=== PATIENT | female | born 1955 | race Caucasian/White ===

== ENCOUNTER 2016-07-28 03:23 | Inpatient (IN) | payer BC, MEDICARE, OTHER ==
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
--- NOTE | ~2016-07-28 | OP ---
Record Of Operation [facility] [address] [place]. [address] NAME: YUAN LOJA : 57 STATUS : ADM IN PAT#: [id number] AGE: 60 ADM/REG DATE : 07/28/16 MR#: [id number] REPORT SERV DATE: 08/08/16 DICTATED BY: SHREE BRAVO II DATE: 08/08/16 REPORT STATUS : Draft TRANSCRIBED BY: MODIqra DATE: 08/08/16 DATE OF PROCEDURE: 08/05/2016 SERVICE DESK TEAM LEAD: Dr. Wall. PREOPERATIVE DIAGNOSIS: Critical ischemia right leg with chronic ulceration. POSTOPERATIVE DIAGNOSIS: Critical ischemia right leg with chronic ulceration. PROCEDURE: 1. Abdominal aortogram from a left femoral approach. 2. Right leg angiogram. 3. Percutaneous angioplasty of right superficial femoral artery occlusion. 4. Percutaneous angioplasty of right popliteal artery. 5. Percutaneous angioplasty of right tibioperoneal trunk. 6. Percutaneous primary stent placement of right external iliac artery. ANESTHESIA: Local with MAC. IV FLUIDS: 400 mL. ESTIMATED BLOOD LOSS: 20. CONTRAST: 67. BRIEF HISTORY: Ms. Loja is a 60-year-old female, who has had a long-standing PVD as well as deformity of both legs. She has developed a decubitus ulcer on the right leg. She has been evaluated for possible [id number]. She has no femoral pulse. She was recommended to undergo angiogram for possible limb salvage and for possible healing with [id number]-[id number] amputation if this is ultimately required. DETAILS: She was taken to the operating room and placed supine on table. Both groins were prepped and draped. I used ultrasound to identify the left common femoral artery. I performed a puncture, placed a 5-Vietnamese sheath. Aortic catheter was placed. Aortogram demonstrates a patent abdominal aorta. The renal vessels were patent. There was no aneurysm or dissection. Both common iliac arteries were widely patent. On the left side, a mild disease is noted with no focal stenosis. There was a severe stenosis over a long segment within the external iliac artery on the right side. Stenosis is more than 80%. There was a stent present in the very distal external iliac artery that was patent. The stents have no evidence of stenosis. We then passed a catheter over the bifurcation. We heparinized the patient. We performed a right leg angiogram, it demonstrates the common femoral and profunda to be patent. These are primarily fed through the internal iliac. The SFA is patent. It occludes just beyond its origin. There was reconstitution of the popliteal artery. All 3 tibial vessels were patent but there was a stenosis within the tibioperoneal trunk. We then passed a 6-Vietnamese sheath over the bifurcation. We were able to pass a wire through the SFA occlusion through the popliteal and through the tibioperoneal Record Of Operation [place] [id number] [facility] [place]. [address] NAME: YUAN LOJA : 57 STATUS : ADM IN PAT#: [id number] AGE: 60 ADM/REG DATE : 07/28/16 MR#: [id number] REPORT SERV DATE: 08/08/16 DICTATED BY: SHREE BRAVO II DATE: 08/08/16 REPORT STATUS : Draft TRANSCRIBED BY: KRISHNA DATE: 08/08/16 trunk. We then angioplastied the SFA occlusion using a 4-mm balloon. We also angioplastied the popliteal which was heavily diseased and then angioplastied the lesion in the tibioperoneal trunk which was more than 70% with a 3 mm balloon. Completion angiogram demonstrates a good result. The SFA is now widely patent. There is no further significant stenosis seen. There was good flow demonstrated distally. There was good flow in the popliteal although the vessel is somewhat small. There was no focal stenosis seen, and the tibioperoneal trunk is now widely patent with no further stenosis seen. We then focused our attention on the external iliac artery. We elected to proceed with stent placement of this. We advanced a 6 mm x 80 mm stent into the external iliac artery and deployed the stent at the site of the stenosis which measured more than 80% throughout. We post-dilated this with a 4 balloon. The completion angiogram demonstrates an excellent result with good placement of the stent and no further stenosis seen. We then removed all the wires and catheters and held manual pressure until hemostatic. At the end of procedure, Ms. Loja was stable. She had tolerated it well. She was transported to the recovery room in good condition. SYEDA/KRISHNA Shree Bravo II, M.D. / [id number] CC: Aliya Leiva II
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
[2016-07-28 02:59] LABS: BASOPHILS 0.4 %; BASOPHILS ABSOLUTE 0.08 10/3/uL (0.0-0.16); EOSINOPHILS 5.9 %; EOSINOPHILS ABSOLUTE 1.16 10/3/uL (0.0-0.53); IMMATURE GRANULOCYTES 1.1 %; IMMATURE GRANULOCYTES ABSOLUTE 0.21 10/3/uL (0.0-0.11); LYMPHOCYTES 20.2 %; LYMPHOCYTES ABSOLUTE 3.95 10/3/uL (0.67-4.30); MEAN CORPUS HGB CONC 31.1 g/dL (32.0-36.0); MEAN CORPUSCULAR HEMOGLOB 24.8 pg (26.0-34.0); MEAN CORPUSCULAR VOLUME 79.7 fL (80-100); MEAN PLATELET VOLUME 8.7 fL (9.2-13.0); MONOCYTES 7.7 %; MONOCYTES ABSOLUTE 1.51 10/3/uL (0.21-1.20); NEUTROPHILS 64.7 %; NEUTROPHILS ABSOLUTE 12.66 10/3/uL (2.02-8.40); RBC DISTRIBUTION WIDTH 18.5 % (12.0-16.0)
[2016-07-28 03:06] LABS: ER CBC TAT 0 Hrs 11 Mins; HEMOGLOBIN 10.9 g/dL (12.0-16.0); MANUAL DIFF NO %; PLATELET COUNT 635 10/3/uL (150-400); RED CELL COUNT 4.39 10/6/uL (4.0-5.6); WHITE BLOOD CELLS 19.6 10/3/uL (4.5-10.5)
[2016-07-28 03:16] LABS: LACTATE 2.3 MMOL/L (0.3-2.4)
[2016-07-28 03:17] LABS: A/G RATIO 0.4 (0.7-1.9); ALBUMIN 2.2 G/DL (3.5-5.0); ALKALINE PHOSPHATASE 232 U/L (45-117); BUN (BLOOD UREA NITROGEN) 19 MG/DL (6-23); CALCIUM, SERUM 8.3 MG/DL (8.5-10.4); CHLORIDE, SERUM 114 MMOL/L (96-112); CO2 (CARBON DIOXIDE) 24 MMOL/L (24-34); GFR AFRICAN AMERICAN 48 ML/MIN (>=60); GFR NON AFRICAN AMERICAN 41 ML/MIN (>=60); GLOBULIN 5.5 G/DL (2.5-4.1); GLUCOSE, SERUM 161 MG/DL (60-99); SGOT(AST) 20 U/L (5-40); SGPT(ALT) 22 U/L (5-65); SODIUM, SERUM 144 MMOL/L (135-148); TOTAL BILIRUBIN 0.2 MG/DL (0-1.2); TOTAL PROTEIN 7.7 G/DL (6.0-8.5)
[~2016-07-28 03:23] MED LIST: AMB10 PO; ASAB PO; IMDUR30 PO; LIPITOR40 PO; MAGOX4 PO; MEP50TAB PO; NEUR600 PO; NICODERM; NORV10 PO; XANAX2 MG PO; ZOFRAN4 PO
[2016-07-28 03:37] LABS: INTERNATIONAL NORMAL RATI 1.1 UNITS (-); PARTIAL THROMBO TIME 27.7 SEC (22.5-37.2); PROTIME (NOT ORD) 14.5 SEC (12.0-14.5)
[2016-07-28 13:07] LABS: PHOSPHORUS, SERUM 3.1 MG/DL (2.5-4.5)
[2016-07-28] MEDS ORDERED: XANAX2 MG PO (16:28)
[2016-07-28] MEDS ORDERED: NORV10 PO (16:28)
[2016-07-28] MEDS ORDERED: ASAB PO (16:28)
[2016-07-28] MEDS ORDERED: ZANTAC 150 PO (16:29)
[2016-07-28] MEDS ORDERED: NEUR600 PO (16:29)
[2016-07-28] MEDS ORDERED: MAGNESIUM PO (16:30)
[2016-07-28] MEDS ORDERED: BC HEADACHE PO (16:30)
[2016-07-28] MEDS ORDERED: CALCIUM PO (16:30)
[2016-07-28] MEDS ORDERED: SILVADENE CREAM TOP (16:31)
[2016-07-28] MEDS ORDERED: MEP50TAB PO (16:31)
[2016-07-28] MEDS ORDERED: ZOFRAN4 PO (16:32)
[2016-07-28] MEDS ORDERED: AMB10 PO (16:32)
[2016-07-28] MEDS ORDERED: HABIT21 TOP (16:32)
[2016-07-28] MEDS ORDERED: ZINC PO (16:34)
[2016-07-28 17:22] LABS: ASCORBIC ACID (UR NOT ORDER) NEG (NEG); BILIRUBIN, URINE NEGATIVE (NEG); KETONE, URINE NEGATIVE (NEG); LEUKOCYTE ESTERASE(NOT OR LARGE (NEG); LEUKOCYTE ESTERASE(NOT OR MOD (NEG); WBC (NOT ORDERED) (RFLEX) 26 (0-5); WBC (NOT ORDERED) (RFLEX) 91 (0-5)
[2016-07-29 05:50] LABS: BASOPHILS 0.1 %; BASOPHILS ABSOLUTE 0.01 10/3/uL (0.0-0.16); EOSINOPHILS 13.1 %; EOSINOPHILS ABSOLUTE 1.98 10/3/uL (0.0-0.53); HEMOGLOBIN 9.3 g/dL (12.0-16.0); IMMATURE GRANULOCYTES 0.5 %; IMMATURE GRANULOCYTES ABSOLUTE 0.08 10/3/uL (0.0-0.11); LYMPHOCYTES 6.9 %; LYMPHOCYTES ABSOLUTE 1.05 10/3/uL (0.67-4.30); MEAN CORPUS HGB CONC 29.8 g/dL (32.0-36.0); MEAN CORPUSCULAR HEMOGLOB 24.1 pg (26.0-34.0); MEAN CORPUSCULAR VOLUME 80.8 fL (80-100); MEAN PLATELET VOLUME 8.5 fL (9.2-13.0); MONOCYTES 2.9 %; MONOCYTES ABSOLUTE 0.44 10/3/uL (0.21-1.20); NEUTROPHILS 76.5 %; NEUTROPHILS ABSOLUTE 11.56 10/3/uL (2.02-8.40); PLATELET COUNT 520 10/3/uL (150-400); RBC DISTRIBUTION WIDTH 18.6 % (12.0-16.0); RED CELL COUNT 3.86 10/6/uL (4.0-5.6); WHITE BLOOD CELLS 15.1 10/3/uL (4.5-10.5)
[2016-07-29 05:51] LABS: HEMATOCRIT 31.2 % (36.0-48.0); MANUAL DIFF NO %
[2016-07-29 06:10] LABS: ALBUMIN 1.6 G/DL (3.5-5.0); BUN (BLOOD UREA NITROGEN) 12 MG/DL (6-23); CALCIUM, SERUM 7.6 MG/DL (8.5-10.4); CHLORIDE, SERUM 113 MMOL/L (96-112); CO2 (CARBON DIOXIDE) 18 MMOL/L (24-34); CREATININE 0.98 MG/DL (0.55-1.02); GFR AFRICAN AMERICAN 73 ML/MIN (>=60); GFR NON AFRICAN AMERICAN 63 ML/MIN (>=60); GLUCOSE, SERUM 99 MG/DL (60-99); PHOSPHORUS, SERUM 2.8 MG/DL (2.5-4.5); POTASSIUM, SERUM 4.1 MMOL/L (3.5-5.3); SODIUM, SERUM 138 MMOL/L (135-148)
[2016-07-30 06:42] LABS: BASOPHILS 0.2 %; BASOPHILS ABSOLUTE 0.02 10/3/uL (0.0-0.16); EOSINOPHILS 12.4 %; EOSINOPHILS ABSOLUTE 1.47 10/3/uL (0.0-0.53); HEMOGLOBIN 8.3 g/dL (12.0-16.0); IMMATURE GRANULOCYTES 0.6 %; IMMATURE GRANULOCYTES ABSOLUTE 0.07 10/3/uL (0.0-0.11); LYMPHOCYTES 15.1 %; LYMPHOCYTES ABSOLUTE 1.79 10/3/uL (0.67-4.30); MEAN CORPUS HGB CONC 30.2 g/dL (32.0-36.0); MEAN CORPUSCULAR HEMOGLOB 24.2 pg (26.0-34.0); MEAN CORPUSCULAR VOLUME 80.2 fL (80-100); MEAN PLATELET VOLUME 8.4 fL (9.2-13.0); MONOCYTES ABSOLUTE 1.18 10/3/uL (0.21-1.20); NEUTROPHILS 61.7 %; NEUTROPHILS ABSOLUTE 7.31 10/3/uL (2.02-8.40); PLATELET COUNT 404 10/3/uL (150-400); RBC DISTRIBUTION WIDTH 18.3 % (12.0-16.0); RED CELL COUNT 3.43 10/6/uL (4.0-5.6); WHITE BLOOD CELLS 11.8 10/3/uL (4.5-10.5)
[2016-07-30 06:43] LABS: HEMATOCRIT 27.5 % (36.0-48.0); MANUAL DIFF NO %
[2016-07-30 08:49] LABS: POTASSIUM, SERUM 4.5 MMOL/L (3.5-5.3); SGOT(AST) 19 U/L (5-40); SODIUM, SERUM 134 MMOL/L (135-148)
[2016-07-30 09:08] LABS: CALCIUM, SERUM 7.4 MG/DL (8.5-10.4); CHLORIDE, SERUM 116 MMOL/L (96-112); GFR AFRICAN AMERICAN 71 ML/MIN (>=60); GFR NON AFRICAN AMERICAN 62 ML/MIN (>=60); SGPT(ALT) 16 U/L (5-65); TOTAL BILIRUBIN 0.2 MG/DL (0-1.2)
[2016-07-30 09:24] LABS: ALKALINE PHOSPHATASE 166 U/L (45-117)
[2016-07-30 09:35] LABS: ALBUMIN 1.4 G/DL (3.5-5.0); BUN (BLOOD UREA NITROGEN) 10 MG/DL (6-23); CO2 (CARBON DIOXIDE) 18 MMOL/L (24-34); GLUCOSE, SERUM 101 MG/DL (60-99)
[2016-07-30 09:38] LABS: A/G RATIO 0.3 (0.7-1.9); GLOBULIN 4.2 G/DL (2.5-4.1); TOTAL PROTEIN 5.6 G/DL (6.0-8.5)
[2016-07-31 07:17] LABS: HEMATOCRIT 25.5 % (36.0-48.0); HEMOGLOBIN 7.8 g/dL (12.0-16.0); MEAN CORPUS HGB CONC 30.6 g/dL (32.0-36.0); MEAN CORPUSCULAR HEMOGLOB 24.5 pg (26.0-34.0); MEAN CORPUSCULAR VOLUME 79.9 fL (80-100); MEAN PLATELET VOLUME 8.5 fL (9.2-13.0); PLATELET COUNT 370 10/3/uL (150-400); RBC DISTRIBUTION WIDTH 18.2 % (12.0-16.0); RED CELL COUNT 3.19 10/6/uL (4.0-5.6); WHITE BLOOD CELLS 12.1 10/3/uL (4.5-10.5)
[2016-07-31 07:18] LABS: MANUAL DIFF YES %
[2016-07-31 08:09] LABS: ANISOCYTOSIS 1+ (5-10/OIF) (0-5/OIF); BAND NEUTROPHILS 10 %; EOSINOPHILS 3 %; EOSINOPHILS ABSOLUTE (CALC) 0.36 10/3/uL (0.0-0.53); HYPOCHROMIA 1+ (3-10/OIF) (0-2/OIF); LYMPHOCYTES 8 %; LYMPHOCYTES ABSOLUTE (CALC) 0.97 10/3/uL (0.67-4.30); MONOCYTES 3 %; MONOCYTES ABSOLUTE (CALC) 0.36 10/3/uL (0.21-1.20); NEUTROPHILS ABSOLUTE (CALC) 10.41 10/3/uL (2.02-8.40); SEGMENTED NEUTROPHIL (0) 76 %; TOTAL NUCLEATED CELLS 100
[2016-07-31 08:10] LABS: PLATELET ESTIMATE ADQ (ADEQUATE)
[2016-07-31 08:11] LABS: TEARDROP SHAPED RBCS FEW (3-10/OIF)
[2016-07-31 10:24] LABS: BUN (BLOOD UREA NITROGEN) 12 MG/DL (6-23); CALCIUM, SERUM 7.4 MG/DL (8.5-10.4); CHLORIDE, SERUM 114 MMOL/L (96-112); CO2 (CARBON DIOXIDE) 20 MMOL/L (24-34); CREATININE 0.98 MG/DL (0.55-1.02); GFR AFRICAN AMERICAN 73 ML/MIN (>=60); GFR NON AFRICAN AMERICAN 63 ML/MIN (>=60); POTASSIUM, SERUM 4.7 MMOL/L (3.5-5.3)
[2016-07-31 10:32] LABS: GLUCOSE, SERUM 123 MG/DL (60-99); SODIUM, SERUM 142 MMOL/L (135-148)
[2016-07-31 11:40] LABS: C-REACTIVE PROTEIN 66.2 MG/L (<8.0)
[2016-08-01 05:09] LABS: BASOPHILS 0.3 %; BASOPHILS ABSOLUTE 0.03 10/3/uL (0.0-0.16); EOSINOPHILS 9.8 %; EOSINOPHILS ABSOLUTE 1.08 10/3/uL (0.0-0.53); HEMATOCRIT 27.6 % (36.0-48.0); HEMOGLOBIN 8.4 g/dL (12.0-16.0); IMMATURE GRANULOCYTES 0.7 %; IMMATURE GRANULOCYTES ABSOLUTE 0.08 10/3/uL (0.0-0.11); LYMPHOCYTES 18.8 %; LYMPHOCYTES ABSOLUTE 2.07 10/3/uL (0.67-4.30); MEAN CORPUS HGB CONC 30.4 g/dL (32.0-36.0); MEAN CORPUSCULAR HEMOGLOB 24.2 pg (26.0-34.0); MEAN CORPUSCULAR VOLUME 79.5 fL (80-100); MEAN PLATELET VOLUME 8.6 fL (9.2-13.0); MONOCYTES 11.8 %; NEUTROPHILS 58.6 %; NEUTROPHILS ABSOLUTE 6.45 10/3/uL (2.02-8.40); PLATELET COUNT 322 10/3/uL (150-400); RED CELL COUNT 3.47 10/6/uL (4.0-5.6)
[2016-08-01 05:10] LABS: BUN (BLOOD UREA NITROGEN) 11 MG/DL (6-23); CALCIUM, SERUM 7.7 MG/DL (8.5-10.4); CHLORIDE, SERUM 114 MMOL/L (96-112); CO2 (CARBON DIOXIDE) 17 MMOL/L (24-34); GFR AFRICAN AMERICAN 64 ML/MIN (>=60); GFR NON AFRICAN AMERICAN 55 ML/MIN (>=60); GLUCOSE, SERUM 117 MG/DL (60-99); POTASSIUM, SERUM 4.7 MMOL/L (3.5-5.3); SODIUM, SERUM 139 MMOL/L (135-148)
[2016-08-01 05:11] LABS: MANUAL DIFF NO %
[2016-08-02 07:08] LABS: BASOPHILS 0.2 %; BASOPHILS ABSOLUTE 0.03 10/3/uL (0.0-0.16); EOSINOPHILS 8.1 %; EOSINOPHILS ABSOLUTE 1.02 10/3/uL (0.0-0.53); HEMATOCRIT 27.2 % (36.0-48.0); HEMOGLOBIN 8.4 g/dL (12.0-16.0); IMMATURE GRANULOCYTES ABSOLUTE 0.12 10/3/uL (0.0-0.11); LYMPHOCYTES 15.9 %; LYMPHOCYTES ABSOLUTE 1.99 10/3/uL (0.67-4.30); MEAN CORPUS HGB CONC 30.9 g/dL (32.0-36.0); MEAN CORPUSCULAR HEMOGLOB 23.9 pg (26.0-34.0); MEAN CORPUSCULAR VOLUME 77.5 fL (80-100); MEAN PLATELET VOLUME 8.4 fL (9.2-13.0); MONOCYTES 14.6 %; MONOCYTES ABSOLUTE 1.83 10/3/uL (0.21-1.20); NEUTROPHILS 60.2 %; NEUTROPHILS ABSOLUTE 7.54 10/3/uL (2.02-8.40); PLATELET COUNT 336 10/3/uL (150-400); RBC DISTRIBUTION WIDTH 17.7 % (12.0-16.0); RED CELL COUNT 3.51 10/6/uL (4.0-5.6); WHITE BLOOD CELLS 12.5 10/3/uL (4.5-10.5)
[2016-08-02 07:13] LABS: MANUAL DIFF NO %
[2016-08-02 07:26] LABS: BUN (BLOOD UREA NITROGEN) 10 MG/DL (6-23); CALCIUM, SERUM 7.5 MG/DL (8.5-10.4); CHLORIDE, SERUM 111 MMOL/L (96-112); CO2 (CARBON DIOXIDE) 20 MMOL/L (24-34); CREATININE 0.94 MG/DL (0.55-1.02); GFR AFRICAN AMERICAN 77 ML/MIN (>=60); GFR NON AFRICAN AMERICAN 66 ML/MIN (>=60); GLUCOSE, SERUM 92 MG/DL (60-99); POTASSIUM, SERUM 4.6 MMOL/L (3.5-5.3); SODIUM, SERUM 141 MMOL/L (135-148)
[2016-08-03 04:52] LABS: BUN (BLOOD UREA NITROGEN) 13 MG/DL (6-23); CALCIUM, SERUM 7.7 MG/DL (8.5-10.4); CHLORIDE, SERUM 109 MMOL/L (96-112); CO2 (CARBON DIOXIDE) 24 MMOL/L (24-34); CREATININE 1.02 MG/DL (0.55-1.02); GFR AFRICAN AMERICAN 70 ML/MIN (>=60); GFR NON AFRICAN AMERICAN 60 ML/MIN (>=60); POTASSIUM, SERUM 4.9 MMOL/L (3.5-5.3); SODIUM, SERUM 139 MMOL/L (135-148)
[2016-08-03 04:53] LABS: GLUCOSE, SERUM 118 MG/DL (60-99)
[2016-08-03 06:31] LABS: BASOPHILS 0.5 %; BASOPHILS ABSOLUTE 0.06 10/3/uL (0.0-0.16); EOSINOPHILS 7.2 %; HEMATOCRIT 28.1 % (36.0-48.0); HEMOGLOBIN 8.5 g/dL (12.0-16.0); IMMATURE GRANULOCYTES 2.2 %; IMMATURE GRANULOCYTES ABSOLUTE 0.27 10/3/uL (0.0-0.11); LYMPHOCYTES 23.8 %; LYMPHOCYTES ABSOLUTE 2.96 10/3/uL (0.67-4.30); MANUAL DIFF NO %; MEAN CORPUS HGB CONC 30.2 g/dL (32.0-36.0); MEAN CORPUSCULAR HEMOGLOB 23.9 pg (26.0-34.0); MEAN CORPUSCULAR VOLUME 79.2 fL (80-100); MEAN PLATELET VOLUME 8.5 fL (9.2-13.0); MONOCYTES ABSOLUTE 1.49 10/3/uL (0.21-1.20); NEUTROPHILS 54.3 %; NEUTROPHILS ABSOLUTE 6.74 10/3/uL (2.02-8.40); PLATELET COUNT 363 10/3/uL (150-400); RBC DISTRIBUTION WIDTH 17.7 % (12.0-16.0); RED CELL COUNT 3.55 10/6/uL (4.0-5.6); WHITE BLOOD CELLS 12.4 10/3/uL (4.5-10.5)
[2016-08-04 07:35] LABS: BASOPHILS 0.3 %; BASOPHILS ABSOLUTE 0.04 10/3/uL (0.0-0.16); EOSINOPHILS 7.6 %; EOSINOPHILS ABSOLUTE 0.96 10/3/uL (0.0-0.53); HEMATOCRIT 27.1 % (36.0-48.0); HEMOGLOBIN 8.4 g/dL (12.0-16.0); IMMATURE GRANULOCYTES 3.3 %; IMMATURE GRANULOCYTES ABSOLUTE 0.42 10/3/uL (0.0-0.11); LYMPHOCYTES 22.3 %; LYMPHOCYTES ABSOLUTE 2.82 10/3/uL (0.67-4.30); MEAN CORPUSCULAR HEMOGLOB 23.8 pg (26.0-34.0); MEAN PLATELET VOLUME 8.4 fL (9.2-13.0); MONOCYTES 11.1 %; NEUTROPHILS 55.4 %; NEUTROPHILS ABSOLUTE 6.99 10/3/uL (2.02-8.40); PLATELET COUNT 390 10/3/uL (150-400); RBC DISTRIBUTION WIDTH 17.8 % (12.0-16.0); RED CELL COUNT 3.53 10/6/uL (4.0-5.6); WHITE BLOOD CELLS 12.6 10/3/uL (4.5-10.5)
[2016-08-04 07:36] LABS: MANUAL DIFF NO %; MEAN CORPUSCULAR VOLUME 76.8 fL (80-100)
[2016-08-04 07:41] LABS: INTERNATIONAL NORMAL RATI 1.2 UNITS (-); PROTIME (NOT ORD) 14.8 SEC (12.0-14.5)
[2016-08-04 07:55] LABS: ALBUMIN 1.5 G/DL (3.5-5.0); BUN (BLOOD UREA NITROGEN) 11 MG/DL (6-23); CHLORIDE, SERUM 105 MMOL/L (96-112); CREATININE 0.89 MG/DL (0.55-1.02); GFR AFRICAN AMERICAN 82 ML/MIN (>=60); GFR NON AFRICAN AMERICAN 71 ML/MIN (>=60); GLUCOSE, SERUM 115 MG/DL (60-99); POTASSIUM, SERUM 4.3 MMOL/L (3.5-5.3); SGOT(AST) 11 U/L (5-40); SGPT(ALT) 9 U/L (5-65); SODIUM, SERUM 140 MMOL/L (135-148); TOTAL BILIRUBIN 0.2 MG/DL (0-1.2); TOTAL PROTEIN 6.6 G/DL (6.0-8.5)
[2016-08-04 07:57] LABS: A/G RATIO 0.3 (0.7-1.9); ALKALINE PHOSPHATASE 208 U/L (45-117); CO2 (CARBON DIOXIDE) 30 MMOL/L (24-34); GLOBULIN 5.1 G/DL (2.5-4.1)
[2016-08-05 05:40] LABS: BASOPHILS 0.7 %; EOSINOPHILS 6.7 %; EOSINOPHILS ABSOLUTE 0.93 10/3/uL (0.0-0.53); HEMATOCRIT 28.2 % (36.0-48.0); HEMOGLOBIN 8.6 g/dL (12.0-16.0); IMMATURE GRANULOCYTES 2.6 %; IMMATURE GRANULOCYTES ABSOLUTE 0.36 10/3/uL (0.0-0.11); LYMPHOCYTES 21.7 %; LYMPHOCYTES ABSOLUTE 3.03 10/3/uL (0.67-4.30); MEAN CORPUS HGB CONC 30.5 g/dL (32.0-36.0); MEAN CORPUSCULAR HEMOGLOB 23.8 pg (26.0-34.0); MEAN CORPUSCULAR VOLUME 78.1 fL (80-100); MEAN PLATELET VOLUME 9.3 fL (9.2-13.0); MONOCYTES 11.4 %; MONOCYTES ABSOLUTE 1.59 10/3/uL (0.21-1.20); NEUTROPHILS 56.9 %; NEUTROPHILS ABSOLUTE 7.93 10/3/uL (2.02-8.40); PLATELET COUNT 335 10/3/uL (150-400); RBC DISTRIBUTION WIDTH 17.8 % (12.0-16.0); RED CELL COUNT 3.61 10/6/uL (4.0-5.6); WHITE BLOOD CELLS 13.9 10/3/uL (4.5-10.5)
[2016-08-05 05:41] LABS: MANUAL DIFF NO %
[2016-08-05 05:56] LABS: BUN (BLOOD UREA NITROGEN) 11 MG/DL (6-23); CALCIUM, SERUM 7.7 MG/DL (8.5-10.4); CHLORIDE, SERUM 104 MMOL/L (96-112); CO2 (CARBON DIOXIDE) 27 MMOL/L (24-34); CPK 42 U/L (0-200); CREATININE 0.98 MG/DL (0.55-1.02); GFR AFRICAN AMERICAN 73 ML/MIN (>=60); GFR NON AFRICAN AMERICAN 63 ML/MIN (>=60); SODIUM, SERUM 138 MMOL/L (135-148)
[2016-08-05 05:57] LABS: GLUCOSE, SERUM 160 MG/DL (60-99)
[2016-08-06 06:52] LABS: BASOPHILS 0.5 %; BASOPHILS ABSOLUTE 0.08 10/3/uL (0.0-0.16); EOSINOPHILS 6.5 %; EOSINOPHILS ABSOLUTE 0.99 10/3/uL (0.0-0.53); HEMATOCRIT 28.3 % (36.0-48.0); HEMOGLOBIN 8.5 g/dL (12.0-16.0); IMMATURE GRANULOCYTES 2.2 %; IMMATURE GRANULOCYTES ABSOLUTE 0.34 10/3/uL (0.0-0.11); LYMPHOCYTES 17.3 %; LYMPHOCYTES ABSOLUTE 2.62 10/3/uL (0.67-4.30); MEAN CORPUSCULAR HEMOGLOB 23.4 pg (26.0-34.0); MONOCYTES 9.8 %; MONOCYTES ABSOLUTE 1.49 10/3/uL (0.21-1.20); NEUTROPHILS 63.7 %; NEUTROPHILS ABSOLUTE 9.65 10/3/uL (2.02-8.40); PLATELET COUNT 395 10/3/uL (150-400); RBC DISTRIBUTION WIDTH 17.7 % (12.0-16.0); RED CELL COUNT 3.63 10/6/uL (4.0-5.6); WHITE BLOOD CELLS 15.2 10/3/uL (4.5-10.5)
[2016-08-06 06:53] LABS: MANUAL DIFF NO %
[2016-08-06 07:10] LABS: ANISOCYTOSIS 1+ (5-10/OIF) (0-5/OIF); PLATELET ESTIMATE ADQ (ADEQUATE)
[2016-08-06 07:12] LABS: BUN (BLOOD UREA NITROGEN) 11 MG/DL (6-23); CALCIUM, SERUM 7.8 MG/DL (8.5-10.4); CHLORIDE, SERUM 101 MMOL/L (96-112); CO2 (CARBON DIOXIDE) 25 MMOL/L (24-34); CREATININE 0.94 MG/DL (0.55-1.02); GFR AFRICAN AMERICAN 77 ML/MIN (>=60); GFR NON AFRICAN AMERICAN 66 ML/MIN (>=60); GLUCOSE, SERUM 163 MG/DL (60-99); POTASSIUM, SERUM 4.3 MMOL/L (3.5-5.3); SODIUM, SERUM 135 MMOL/L (135-148)
[2016-08-07 06:08] LABS: BUN (BLOOD UREA NITROGEN) 10 MG/DL (6-23); CALCIUM, SERUM 7.8 MG/DL (8.5-10.4); CHLORIDE, SERUM 105 MMOL/L (96-112); CO2 (CARBON DIOXIDE) 27 MMOL/L (24-34); CREATININE 1.13 MG/DL (0.55-1.02); GFR AFRICAN AMERICAN 62 ML/MIN (>=60); GFR NON AFRICAN AMERICAN 53 ML/MIN (>=60); GLUCOSE, SERUM 164 MG/DL (60-99); POTASSIUM, SERUM 4.6 MMOL/L (3.5-5.3); SODIUM, SERUM 138 MMOL/L (135-148)
[2016-08-07 06:09] LABS: BASOPHILS 0.5 %; BASOPHILS ABSOLUTE 0.07 10/3/uL (0.0-0.16); EOSINOPHILS 6.6 %; EOSINOPHILS ABSOLUTE 0.98 10/3/uL (0.0-0.53); HEMATOCRIT 25.9 % (36.0-48.0); HEMOGLOBIN 7.8 g/dL (12.0-16.0); IMMATURE GRANULOCYTES 1.9 %; IMMATURE GRANULOCYTES ABSOLUTE 0.29 10/3/uL (0.0-0.11); LYMPHOCYTES 19.5 %; MEAN CORPUS HGB CONC 30.1 g/dL (32.0-36.0); MEAN CORPUSCULAR HEMOGLOB 23.6 pg (26.0-34.0); MEAN CORPUSCULAR VOLUME 78.2 fL (80-100); MEAN PLATELET VOLUME 8.7 fL (9.2-13.0); MONOCYTES 12.1 %; NEUTROPHILS 59.4 %; NEUTROPHILS ABSOLUTE 8.86 10/3/uL (2.02-8.40); PLATELET COUNT 427 10/3/uL (150-400); RED CELL COUNT 3.31 10/6/uL (4.0-5.6); WHITE BLOOD CELLS 14.9 10/3/uL (4.5-10.5)
[2016-08-07 06:10] LABS: MANUAL DIFF NO %
[2016-08-08 08:07] LABS: BUN (BLOOD UREA NITROGEN) 15 MG/DL (6-23); CALCIUM, SERUM 8.2 MG/DL (8.5-10.4); CHLORIDE, SERUM 104 MMOL/L (96-112); CO2 (CARBON DIOXIDE) 25 MMOL/L (24-34); CREATININE 1.22 MG/DL (0.55-1.02); GFR AFRICAN AMERICAN 56 ML/MIN (>=60); GFR NON AFRICAN AMERICAN 48 ML/MIN (>=60); GLUCOSE, SERUM 236 MG/DL (60-99); POTASSIUM, SERUM 4.4 MMOL/L (3.5-5.3); SODIUM, SERUM 135 MMOL/L (135-148)
[2016-08-08 08:12] LABS: BASOPHILS 0.8 %; BASOPHILS ABSOLUTE 0.12 10/3/uL (0.0-0.16); EOSINOPHILS 8.3 %; EOSINOPHILS ABSOLUTE 1.32 10/3/uL (0.0-0.53); HEMATOCRIT 24.2 % (36.0-48.0); HEMOGLOBIN 7.4 g/dL (12.0-16.0); IMMATURE GRANULOCYTES 2.6 %; IMMATURE GRANULOCYTES ABSOLUTE 0.41 10/3/uL (0.0-0.11); LYMPHOCYTES 16.9 %; LYMPHOCYTES ABSOLUTE 2.68 10/3/uL (0.67-4.30); MEAN CORPUS HGB CONC 30.6 g/dL (32.0-36.0); MEAN CORPUSCULAR HEMOGLOB 23.8 pg (26.0-34.0); MEAN CORPUSCULAR VOLUME 77.8 fL (80-100); MEAN PLATELET VOLUME 8.9 fL (9.2-13.0); MONOCYTES 9.9 %; MONOCYTES ABSOLUTE 1.57 10/3/uL (0.21-1.20); NEUTROPHILS 61.5 %; NEUTROPHILS ABSOLUTE 9.78 10/3/uL (2.02-8.40); PLATELET COUNT 416 10/3/uL (150-400); RBC DISTRIBUTION WIDTH 18.2 % (12.0-16.0); RED CELL COUNT 3.11 10/6/uL (4.0-5.6); WHITE BLOOD CELLS 15.9 10/3/uL (4.5-10.5)
[2016-08-08 08:15] LABS: MANUAL DIFF NO %
[2016-08-09 09:48] LABS: BASOPHILS 0.6 %; EOSINOPHILS ABSOLUTE 1.55 10/3/uL (0.0-0.53); HEMATOCRIT 25.4 % (36.0-48.0); HEMOGLOBIN 7.6 g/dL (12.0-16.0); IMMATURE GRANULOCYTES 2.8 %; IMMATURE GRANULOCYTES ABSOLUTE 0.48 10/3/uL (0.0-0.11); LYMPHOCYTES 19.7 %; LYMPHOCYTES ABSOLUTE 3.37 10/3/uL (0.67-4.30); MEAN CORPUS HGB CONC 29.9 g/dL (32.0-36.0); MEAN CORPUSCULAR HEMOGLOB 23.5 pg (26.0-34.0); MEAN CORPUSCULAR VOLUME 78.6 fL (80-100); MEAN PLATELET VOLUME 8.7 fL (9.2-13.0); MONOCYTES 9.1 %; MONOCYTES ABSOLUTE 1.56 10/3/uL (0.21-1.20); NEUTROPHILS 58.8 %; NEUTROPHILS ABSOLUTE 10.09 10/3/uL (2.02-8.40); PLATELET COUNT 460 10/3/uL (150-400); RED CELL COUNT 3.23 10/6/uL (4.0-5.6); WHITE BLOOD CELLS 17.2 10/3/uL (4.5-10.5)
[2016-08-09 09:52] LABS: BUN (BLOOD UREA NITROGEN) 17 MG/DL (6-23); CALCIUM, SERUM 7.4 MG/DL (8.5-10.4); CHLORIDE, SERUM 106 MMOL/L (96-112); CO2 (CARBON DIOXIDE) 23 MMOL/L (24-34); CREATININE 1.04 MG/DL (0.55-1.02); GFR AFRICAN AMERICAN 68 ML/MIN (>=60); GFR NON AFRICAN AMERICAN 59 ML/MIN (>=60); MANUAL DIFF NO %; POTASSIUM, SERUM 4.8 MMOL/L (3.5-5.3); SODIUM, SERUM 137 MMOL/L (135-148)
[2016-08-09 09:57] LABS: GLUCOSE, SERUM 181 MG/DL (60-99)
[2016-08-10 05:11] LABS: HEMOGLOBIN 7.5 g/dL (12.0-16.0); MEAN CORPUSCULAR HEMOGLOB 24.1 pg (26.0-34.0); MEAN CORPUSCULAR VOLUME 80.4 fL (80-100); MEAN PLATELET VOLUME 8.6 fL (9.2-13.0); PLATELET COUNT 450 10/3/uL (150-400); RBC DISTRIBUTION WIDTH 18.4 % (12.0-16.0); RED CELL COUNT 3.11 10/6/uL (4.0-5.6); WHITE BLOOD CELLS 13.8 10/3/uL (4.5-10.5)
[2016-08-10 05:12] LABS: MANUAL DIFF YES %
[2016-08-10 05:19] LABS: CALCIUM, SERUM 8.1 MG/DL (8.5-10.4); CHLORIDE, SERUM 108 MMOL/L (96-112); CO2 (CARBON DIOXIDE) 23 MMOL/L (24-34); CREATININE 1.32 MG/DL (0.55-1.02); GFR AFRICAN AMERICAN 51 ML/MIN (>=60); GFR NON AFRICAN AMERICAN 44 ML/MIN (>=60); GLUCOSE, SERUM 181 MG/DL (60-99); POTASSIUM, SERUM 4.4 MMOL/L (3.5-5.3); SODIUM, SERUM 136 MMOL/L (135-148)
[2016-08-10 05:21] LABS: BUN (BLOOD UREA NITROGEN) 21 MG/DL (6-23)
[2016-08-10 05:40] LABS: ANISOCYTOSIS 1+ (5-10/OIF) (0-5/OIF); BAND NEUTROPHILS 9 %; EOSINOPHILS 8 %; HYPOCHROMIA 1+ (3-10/OIF) (0-2/OIF); IMMATURE GRANS ABSOLUTE (CALC) 0.28 10/3/uL (0.0-0.11); LYMPHOCYTES 20 %; LYMPHOCYTES ABSOLUTE (CALC) 2.76 10/3/uL (0.67-4.30); METAMYELOCYTES 2 %; MONOCYTES 9 %; MONOCYTES ABSOLUTE (CALC) 1.24 10/3/uL (0.21-1.20); NEUTROPHILS ABSOLUTE (CALC) 8.42 10/3/uL (2.02-8.40); PLATELET ESTIMATE SLT INC (ADEQUATE); SEGMENTED NEUTROPHIL (0) 52 %; TOTAL NUCLEATED CELLS 100
[2016-08-11 06:10] LABS: BASOPHILS 1.1 %; BASOPHILS ABSOLUTE 0.15 10/3/uL (0.0-0.16); EOSINOPHILS 8.8 %; EOSINOPHILS ABSOLUTE 1.25 10/3/uL (0.0-0.53); HEMATOCRIT 25.8 % (36.0-48.0); HEMOGLOBIN 7.8 g/dL (12.0-16.0); IMMATURE GRANULOCYTES 2.3 %; IMMATURE GRANULOCYTES ABSOLUTE 0.33 10/3/uL (0.0-0.11); LYMPHOCYTES 21.4 %; LYMPHOCYTES ABSOLUTE 3.05 10/3/uL (0.67-4.30); MANUAL DIFF NO %; MEAN CORPUS HGB CONC 30.2 g/dL (32.0-36.0); MEAN CORPUSCULAR HEMOGLOB 23.9 pg (26.0-34.0); MEAN CORPUSCULAR VOLUME 78.9 fL (80-100); MEAN PLATELET VOLUME 8.7 fL (9.2-13.0); MONOCYTES 8.8 %; MONOCYTES ABSOLUTE 1.25 10/3/uL (0.21-1.20); NEUTROPHILS 57.6 %; NEUTROPHILS ABSOLUTE 8.24 10/3/uL (2.02-8.40); NUCLEATED RED BLOOD CELLS 0.2 /100WBC (0-0); PLATELET COUNT 475 10/3/uL (150-400); RBC DISTRIBUTION WIDTH 18.3 % (12.0-16.0); RED CELL COUNT 3.27 10/6/uL (4.0-5.6); WHITE BLOOD CELLS 14.3 10/3/uL (4.5-10.5)
[2016-08-11 06:16] LABS: BUN (BLOOD UREA NITROGEN) 19 MG/DL (6-23); CALCIUM, SERUM 8.5 MG/DL (8.5-10.4); CHLORIDE, SERUM 107 MMOL/L (96-112); CO2 (CARBON DIOXIDE) 20 MMOL/L (24-34); GFR AFRICAN AMERICAN 71 ML/MIN (>=60); GFR NON AFRICAN AMERICAN 62 ML/MIN (>=60); GLUCOSE, SERUM 205 MG/DL (60-99); POTASSIUM, SERUM 4.7 MMOL/L (3.5-5.3); SODIUM, SERUM 136 MMOL/L (135-148)
[2016-08-12 05:51] LABS: BASOPHILS 1.6 %; BASOPHILS ABSOLUTE 0.21 10/3/uL (0.0-0.16); EOSINOPHILS ABSOLUTE 1.35 10/3/uL (0.0-0.53); HEMATOCRIT 25.9 % (36.0-48.0); HEMOGLOBIN 7.8 g/dL (12.0-16.0); IMMATURE GRANULOCYTES 2.1 %; IMMATURE GRANULOCYTES ABSOLUTE 0.28 10/3/uL (0.0-0.11); LYMPHOCYTES 24.5 %; LYMPHOCYTES ABSOLUTE 3.31 10/3/uL (0.67-4.30); MEAN CORPUS HGB CONC 30.1 g/dL (32.0-36.0); MEAN CORPUSCULAR HEMOGLOB 23.8 pg (26.0-34.0); MEAN PLATELET VOLUME 8.7 fL (9.2-13.0); MONOCYTES 8.9 %; MONOCYTES ABSOLUTE 1.21 10/3/uL (0.21-1.20); NEUTROPHILS 52.9 %; NEUTROPHILS ABSOLUTE 7.17 10/3/uL (2.02-8.40); PLATELET COUNT 502 10/3/uL (150-400); RBC DISTRIBUTION WIDTH 18.5 % (12.0-16.0); RED CELL COUNT 3.28 10/6/uL (4.0-5.6); WHITE BLOOD CELLS 13.5 10/3/uL (4.5-10.5)
[2016-08-12 05:52] LABS: MANUAL DIFF NO %
[2016-08-12 06:22] LABS: BUN (BLOOD UREA NITROGEN) 21 MG/DL (6-23); CHLORIDE, SERUM 111 MMOL/L (96-112); CO2 (CARBON DIOXIDE) 23 MMOL/L (24-34); CREATININE 0.94 MG/DL (0.55-1.02); GFR AFRICAN AMERICAN 77 ML/MIN (>=60); GFR NON AFRICAN AMERICAN 66 ML/MIN (>=60); GLUCOSE, SERUM 115 MG/DL (60-99); POTASSIUM, SERUM 5.1 MMOL/L (3.5-5.3); SODIUM, SERUM 142 MMOL/L (135-148)
== END 2016-08-12 13:53 | DRG 853 ==
LOC: ER 03:23 → 2SO 05:59
PROVIDERS: Hospitalist; Internal Medicine; Nurse Practitioner; Student in an Organized Health Care Education/Training Program; Surgery
PROC: 02HV33Z Insertion of Infusion Device into Superior Vena Cava, Percutaneous Approach (ICD-10-PCS; principal; 2016-07-28)
PROC: 4A02X4A Measurement of Cardiac Electrical Activity, Guidance, External Approach (ICD-10-PCS; 2016-07-28)
PROC: 0T25X0Z Change Drainage Device in Kidney, External Approach (ICD-10-PCS; 2016-08-01)
PROC: B41D1ZZ Fluoroscopy of Aorta and Bilateral Lower Extremity Arteries using Low Osmolar Contrast (ICD-10-PCS; 2016-08-05)
PROC: 047K3ZZ Dilation of Right Femoral Artery, Percutaneous Approach (ICD-10-PCS; 2016-08-05 14:00)
PROC: 047H3DZ Dilation of Right External Iliac Artery with Intraluminal Device, Percutaneous Approach (ICD-10-PCS; 2016-08-05 14:00)
PROC: 047M3ZZ Dilation of Right Popliteal Artery, Percutaneous Approach (ICD-10-PCS; 2016-08-05 14:00)
DX: A41.9 Sepsis, unspecified organism (principal); L89.153 Pressure ulcer of sacral region, stage 3; N17.9 Acute kidney failure, unspecified; G82.20 Paraplegia, unspecified; L03.115 Cellulitis of right lower limb; L89.893 Pressure ulcer of other site, stage 3; E66.01 Morbid (severe) obesity due to excess calories; G62.9 Polyneuropathy, unspecified; N39.0 Urinary tract infection, site not specified; M86.9 Osteomyelitis, unspecified; M86.8X6 Other osteomyelitis, lower leg; N20.0 Calculus of kidney; A49.02 Methicillin resistant Staphylococcus aureus infection, unspecified site; E78.5 Hyperlipidemia, unspecified; I10 Essential (primary) hypertension; N31.9 Neuromuscular dysfunction of bladder, unspecified; D50.9 Iron deficiency anemia, unspecified; I73.9 Peripheral vascular disease, unspecified; I77.89 Other specified disorders of arteries and arterioles; D63.8 Anemia in other chronic diseases classified elsewhere; K43.5 Parastomal hernia without obstruction or gangrene; Z68.37 Body mass index [BMI] 37.0-37.9, adult; Z93.3 Colostomy status; Z87.442 Personal history of urinary calculi; Z86.711 Personal history of pulmonary embolism; Z88.5 Allergy status to narcotic agent; Z88.8 Allergy status to other drugs, medicaments and biological substances; Z93.6 Other artificial openings of urinary tract status; Z87.891 Personal history of nicotine dependence
CPT/HCPCS: 36569; 37221; 37224; 37228; 50435; 73718-RT; 74176; 75625; 75710; 76775; 80048; 80053; 80069; 80202; 81001; 82330; 82550; 82962; 83036; 83605; 83735; 84100; 84145; 85025; 85610; 85730; 86140; 86592; 87015; 87040; 87070; 87075; 87077; 87086; 87102; 87116; 87186; 87205; 87389; 93005; 93923; 96365; 97110-GO; 97110-GP; 97163-GP; 97165-GO; 97530-GP; 99152; 99153; 99285; A9270-GY; C1725; C1729; C1751; C1769; C1876; C1894; G8978-CN-GP; G8979-CM-GP; J0878; J2250; J2543; J2720; J3010; J3370; J3475; Q9967